=== PATIENT | female | born 1955 | race Caucasian/White ===

== ENCOUNTER 2018-02-08 19:10 | Inpatient (IN) | payer MEDICARE, OTHER ==
[~2018-02-08] VITALS: Ht 167.6 cm; Wt 89.8 kg
[2018-02-08 21:05] VITALS: BP 150/86
[2018-02-08] MEDS ORDERED: PLEASE ENTER HEIGHT AND WEIGHT MC SCH (22:00)
[2018-02-08] MEDS ORDERED: BISACODYL 10 MG SUPP PR PRN (22:00)
[2018-02-08] MEDS ORDERED: ONDANSETRON 2MG/ML, 2ML IVPush PRN (22:00)
[2018-02-08] MEDS ORDERED: POLYETHYLENE GLYCOL 17 GM PACKET PO PRN (22:00)
[2018-02-08] MEDS ORDERED: PLEASE ENTER ALLERGIES MC SCH (22:00)
[2018-02-08] MEDS ORDERED: DOCU100C33 PO (22:19)
[2018-02-08] MEDS ORDERED: EZET10TA18 PO (22:19)
[2018-02-08] MEDS ORDERED: HYDR-3245 PO (22:19)
[2018-02-08] MEDS ORDERED: ATEN-104 PO (22:19)
[2018-02-08] MEDS ORDERED: LEVO150T PO (22:19)
[2018-02-08] MEDS ORDERED: LEVO5TAB2 PO (22:19)
[2018-02-08] MEDS ORDERED: RABE20TA18 PO (22:19)
[2018-02-08] MEDS ORDERED: TIZA4TAB9 PO (22:19)
[2018-02-08] MEDS ORDERED: ATEN25TA PO (22:19)
[2018-02-08] MEDS ORDERED: ASPI-191 PO (22:19)
[2018-02-08] MEDS ORDERED: PITA4TAB2 PO (22:19)
[2018-02-08] MEDS ORDERED: LIRA0.6P SC (22:19)
[2018-02-08] MEDS ORDERED: ALLO300T PO (22:19)
[2018-02-08] MEDS ORDERED: LEVO25TA2 PO (22:28)
[2018-02-08 23:02] LABS: HEMOGLOBIN A1C 6.3 % (4.2-6.3)
[2018-02-08] MEDS: PITAVASTATIN CALCIUM PO SCH (23:30)
[2018-02-08] MEDS ORDERED: HYDROcodone/APAP 10/325 MG TABLET PO PRN (23:30)
[2018-02-09] MEDS: TIZANIDINE 4MG TABLET PO SCH ×2 (00:31→20:38)
[2018-02-09] MEDS: DIPHENHYDRAMINE 25 MG CAPSULE PO PRN ×2 (00:31→20:42)
[2018-02-09] MEDS: SODIUM CHLORIDE FLUSH 10ML SYR IVF SCH ×3 (00:33→21:00)
[2018-02-09] MEDS: ATENOLOL 25 MG TABLET PO SCH ×2 (00:34→20:37)
[2018-02-09] MEDS: ACETAMINOPHEN 325 MG TABLET PO PRN ×2 (00:43→12:54)
[2018-02-09 02:44] VITALS: BP 96/63
[2018-02-09] MEDS: LEVOTHYROXINE 25 MCG TABLET PO SCH (06:00)
[2018-02-09 06:09] LABS: BASOPHILS # (AUTO) 0.02 x10^3/uL (0-0.1); BASOPHILS % (AUTO) 0 % (0-1); EOSINOPHILS % (AUTO) 0 % (1-7); LYMPHOCYTES # (AUTO) 1.61 x10^3/uL (1-3.4); LYMPHOCYTES % (AUTO) 23 % (22-44); MD NO; MEAN CORPUSCULAR HGB CONC 33.3 g/dL (32.4-35.8); MEAN PLATELET VOLUME 7.8 fL (7.4-10.4); MONOCYTES # (AUTO) 0.63 x10^3/uL (0.2-0.8); MONOCYTES % (AUTO) 9 % (2-9); NEUTROPHILS # (AUTO) 4.63 x10^3/uL (1.8-6.8); NEUTROPHILS % (AUTO) 67 % (42-75); PLATELET COUNT 271 x10^3/uL (130-400); RED BLOOD COUNT 3.63 x10^6/uL (3.82-5.3); RED CELL DISTRIBUTION WIDTH 14.9 % (9.6-15.2)
[2018-02-09 06:25] LABS: CHLORIDE 113 mmol/L (98-107)
[2018-02-09 06:39] LABS: ALANINE AMINOTRANSFERASE 18 U/L (12-78); ALKALINE PHOSPHATASE 71 U/L (45-117); ANION GAP 7 mmol/L (5-15); BILIRUBIN,TOTAL 0.4 mg/dL (0.2-1.0); CALCIUM 8.3 mg/dL (8.5-10.1); CREATININE 1.13 mg/dL (0.55-1.02); TOTAL PROTEIN 5.9 g/dL (6.4-8.2)
[2018-02-09 07:59] VITALS: BP 110/69
[2018-02-09] MEDS: EZETIMIBE 10 MG TABLET PO SCH (08:07)
[2018-02-09] MEDS: SENNA/DOCUSATE TABLET PO SCH (08:07)
[2018-02-09] MEDS: ALLOPURINOL 300 MG TABLET PO SCH (08:08)
[2018-02-09] MEDS: ASPIRIN 81 MG TABLET EC PO SCH (08:08)
[2018-02-09] MEDS: ATENOLOL 50 MG TABLET PO SCH (08:08)
[2018-02-09] MEDS: LEVOCETIRIZINE DIHYDROCHLORIDE 2.5 MG PO SCH (08:10)
[2018-02-09] MEDS ORDERED: PANTOPROZOLE 40MG TABLET PO SCH (09:00)
[2018-02-09 12:19] VITALS: BP 139/86
[2018-02-09] MEDS ORDERED: OMNIPAQUE 350 MG/ML, 100ML BOTTLE ONE (14:53)
[2018-02-09 20:18] VITALS: BP 164/94
[2018-02-09] MEDS ORDERED: ATENOLOL 50 MG TABLET ONE (20:26)
[2018-02-09] MEDS: PITAVASTATIN CALCIUM PO SCH (20:38)
[2018-02-09] MEDS: ACIPHEX 20 MG HOMEMEDPO SCH (20:43)
[2018-02-09] MEDS ORDERED: ACIPHEX 20 MG PO SCH (21:00)
[2018-02-10 02:06] VITALS: BP 105/67
[2018-02-10 06:03] LABS: BASOPHILS # (AUTO) 0.02 x10^3/uL (0-0.1); BASOPHILS % (AUTO) 0 % (0-1); EOSINOPHILS # (AUTO) 0.03 x10^3/uL (0-0.4); EOSINOPHILS % (AUTO) 1 % (1-7); LYMPHOCYTES # (AUTO) 1.53 x10^3/uL (1-3.4); LYMPHOCYTES % (AUTO) 25 % (22-44); MD NO; MEAN CORPUSCULAR HEMOGLOBIN 30.1 pg (27.0-34.8); MEAN CORPUSCULAR HGB CONC 33.3 g/dL (32.4-35.8); MEAN CORPUSCULAR VOLUME 90.2 fL (80-100); MEAN PLATELET VOLUME 7.6 fL (7.4-10.4); MONOCYTES # (AUTO) 0.59 x10^3/uL (0.2-0.8); MONOCYTES % (AUTO) 10 % (2-9); NEUTROPHILS # (AUTO) 3.96 x10^3/uL (1.8-6.8); NEUTROPHILS % (AUTO) 65 % (42-75); PLATELET COUNT 286 x10^3/uL (130-400); RED BLOOD COUNT 3.98 x10^6/uL (3.82-5.3); RED CELL DISTRIBUTION WIDTH 15.4 % (9.6-15.2)
[2018-02-10 06:15] LABS: ANION GAP 8 mmol/L (5-15); CALCIUM 8.4 mg/dL (8.5-10.1); CHLORIDE 108 mmol/L (98-107); CHOLESTEROL, TOTAL 171 mg/dL (140-239); CREATININE 1.28 mg/dL (0.55-1.02); TRIGLYCERIDES 172 mg/dL (50-200); VLDL CHOLESTEROL 34 mg/dL (0-25)
[2018-02-10 06:17] LABS: CHOL/HDL RATIO 3.2; HDL CHOL % 31 % (28-40); HDL CHOLESTEROL (DIRECT) 53 mg/dL (40-60); LDL CHOLESTEROL,CALCULATED 84 mg/dL (54-169)
[2018-02-10 06:18] LABS: LDL/HDL RATIO 1.6 (0.5-3.0)
[2018-02-10] MEDS: LEVOTHYROXINE 25 MCG TABLET PO SCH (06:24)
[2018-02-10 08:05] VITALS: BP 111/72
[2018-02-10] MEDS: SENNA/DOCUSATE TABLET PO SCH (09:00)
[2018-02-10] MEDS: LEVOCETIRIZINE DIHYDROCHLORIDE 2.5 MG PO SCH (09:00)
[2018-02-10] MEDS: SODIUM CHLORIDE FLUSH 10ML SYR IVF SCH ×2 (09:00→21:10)
[2018-02-10] MEDS: ATENOLOL 50 MG TABLET PO SCH (09:07)
[2018-02-10] MEDS: ASPIRIN 81 MG TABLET EC PO SCH (09:08)
[2018-02-10] MEDS: EZETIMIBE 10 MG TABLET PO SCH (09:08)
[2018-02-10] MEDS: ALLOPURINOL 300 MG TABLET PO SCH (09:09)
[2018-02-10 13:14] VITALS: BP 129/82
[2018-02-10] MEDS: ACETAMINOPHEN 325 MG TABLET PO PRN (18:24)
[2018-02-10] MEDS: PITAVASTATIN CALCIUM PO SCH (21:00)
[2018-02-10] MEDS: ACIPHEX 20 MG HOMEMEDPO SCH (21:00)
[2018-02-10] MEDS: TIZANIDINE 4MG TABLET PO SCH (21:10)
[2018-02-10] MEDS: ATENOLOL 25 MG TABLET PO SCH (21:10)
[2018-02-10] MEDS: DIPHENHYDRAMINE 25 MG CAPSULE PO PRN (21:13)
[2018-02-10 21:30] VITALS: BP 90/57
[2018-02-11 02:10] VITALS: BP 100/67
[2018-02-11] MEDS ORDERED: SODIUM CHLORIDE 0.9% 1,000 ML IV SCH (06:00)
[2018-02-11] MEDS: LEVOTHYROXINE 25 MCG TABLET PO SCH (06:00)
[2018-02-11 06:01] LABS: CHLORIDE 110 mmol/L (98-107)
[2018-02-11 06:06] LABS: ANION GAP 10 mmol/L (5-15)
[2018-02-11 07:54] VITALS: BP 94/63
[2018-02-11] MEDS: ATENOLOL 50 MG TABLET PO SCH (08:05)
[2018-02-11] MEDS: LEVOCETIRIZINE DIHYDROCHLORIDE 2.5 MG PO SCH (08:08)
[2018-02-11] MEDS: SODIUM CHLORIDE FLUSH 10ML SYR IVF SCH ×2 (08:08→19:50)
[2018-02-11] MEDS: SENNA/DOCUSATE TABLET PO SCH (09:00)
[2018-02-11] MEDS: EZETIMIBE 10 MG TABLET PO SCH (09:00)
[2018-02-11] MEDS: ALLOPURINOL 300 MG TABLET PO SCH (09:00)
[2018-02-11] MEDS: ASPIRIN 81 MG TABLET EC PO SCH (09:00)
[2018-02-11] MEDS ORDERED: FENTANYL PF 100 MCG/2ML ONE ×2 (13:48→14:51)
[2018-02-11] MEDS ORDERED: HEPARIN 1,000 UNITS/ML, 10ML ONE (13:49)
[2018-02-11] MEDS ORDERED: MIDAZOLAM 1 MG/ML, 5ML ONE (13:49)
[2018-02-11] MEDS ORDERED: BIVALIRUDIN 250 MG ONE (13:49)
[2018-02-11] MEDS ORDERED: VERAPAMIL 2.5 MG/ML, 2ML ONE (13:49)
[2018-02-11] MEDS ORDERED: TICAGRELOR 90 MG TABLET ONE (13:49)
[2018-02-11] MEDS ORDERED: LIDOCAINE 1%, 50ML ONE (14:12)
[2018-02-11] MEDS ORDERED: MIDAZOLAM 1 MG/ML, 2ML ONE (14:51)
[2018-02-11] MEDS ORDERED: BIVALIRUDIN 250 MG in DEXTROSE 5% 50 ML IV SCH (15:15)
[2018-02-11 15:20] VITALS: BP 130/84
[2018-02-11] MEDS: SODIUM CHLORIDE 0.9% 1,000 ML IV SCH ×2 (16:00→23:16)
[2018-02-11 18:45] VITALS: BP 145/90
[2018-02-11] MEDS: TIZANIDINE 4MG TABLET PO SCH (19:48)
[2018-02-11] MEDS: TICAGRELOR 90 MG TABLET PO SCH (19:48)
[2018-02-11] MEDS: PITAVASTATIN CALCIUM PO SCH (19:49)
[2018-02-11] MEDS: ACIPHEX 20 MG HOMEMEDPO SCH (19:49)
[2018-02-11 19:53] VITALS: BP 97/65
[2018-02-11] MEDS ORDERED: ATENOLOL 25 MG TABLET PO SCH (21:00)
[2018-02-11 22:43] VITALS: BP 89/60
[2018-02-12 00:25] VITALS: BP 92/63
[2018-02-12 02:13] VITALS: BP 113/76
[2018-02-12] MEDS: LEVOTHYROXINE 25 MCG TABLET PO SCH (05:31)
[2018-02-12 05:47] LABS: ALBUMIN 3.1 g/dL (3.4-5.0); ANION GAP 9 mmol/L (5-15); CALCIUM 8.5 mg/dL (8.5-10.1); CHLORIDE 111 mmol/L (98-107); CREATININE 0.99 mg/dL (0.55-1.02)
[2018-02-12 06:30] LABS: BASOPHILS # (AUTO) 0.02 x10^3/uL (0-0.1); BASOPHILS % (AUTO) 0 % (0-1); EOSINOPHILS # (AUTO) 0.07 x10^3/uL (0-0.4); EOSINOPHILS % (AUTO) 1 % (1-7); LYMPHOCYTES # (AUTO) 1.74 x10^3/uL (1-3.4); LYMPHOCYTES % (AUTO) 24 % (22-44); MD SCAN; MEAN CORPUSCULAR HEMOGLOBIN 29.6 pg (27.0-34.8); MEAN CORPUSCULAR HGB CONC 32.9 g/dL (32.4-35.8); MEAN CORPUSCULAR VOLUME 89.8 fL (80-100); MEAN PLATELET VOLUME 7.6 fL (7.4-10.4); MONOCYTES # (AUTO) 0.63 x10^3/uL (0.2-0.8); MONOCYTES % (AUTO) 9 % (2-9); NEUTROPHILS # (AUTO) 4.89 x10^3/uL (1.8-6.8); NEUTROPHILS % (AUTO) 67 % (42-75); PLATELET COUNT 291 x10^3/uL (130-400); RED BLOOD COUNT 4.15 x10^6/uL (3.82-5.3); RED CELL DISTRIBUTION WIDTH 15.2 % (9.6-15.2)
[2018-02-12 06:49] VITALS: BP 135/83
[2018-02-12] MEDS ORDERED: ATENOLOL 50 MG TABLET PO SCH (07:30)
[2018-02-12] MEDS: SODIUM CHLORIDE 0.9% 1,000 ML IV SCH ×2 (08:00→16:00)
[2018-02-12] MEDS: LEVOCETIRIZINE DIHYDROCHLORIDE 2.5 MG PO SCH (09:00)
[2018-02-12] MEDS: EZETIMIBE 10 MG TABLET PO SCH (09:00)
[2018-02-12] MEDS: METOPROLOL SUCCINATE 25 MG TAB.ER.24H PO SCH (09:00)
[2018-02-12] MEDS: ASPIRIN 81 MG TABLET EC PO SCH (09:00)
[2018-02-12] MEDS: SENNA/DOCUSATE TABLET PO SCH (09:00)
[2018-02-12] MEDS: ALLOPURINOL 300 MG TABLET PO SCH (09:00)
[2018-02-12] MEDS: SODIUM CHLORIDE FLUSH 10ML SYR IVF SCH ×2 (09:00→20:13)
[2018-02-12] MEDS: TICAGRELOR 90 MG TABLET PO SCH ×2 (09:00→20:10)
[2018-02-12 13:44] VITALS: BP 122/77
[2018-02-12 19:07] VITALS: BP 104/72
[2018-02-12] MEDS: TIZANIDINE 4MG TABLET PO SCH (20:09)
[2018-02-12] MEDS: PITAVASTATIN CALCIUM PO SCH (20:10)
[2018-02-12] MEDS: ACIPHEX 20 MG HOMEMEDPO SCH (20:11)
[2018-02-12] MEDS: DIPHENHYDRAMINE 25 MG CAPSULE PO PRN (20:30)
[2018-02-13 00:34] VITALS: BP 95/65
[2018-02-13 05:30] LABS: ALBUMIN 3.3 g/dL (3.4-5.0); ANION GAP 6 mmol/L (5-15); CALCIUM 8.9 mg/dL (8.5-10.1); CHLORIDE 110 mmol/L (98-107)
[2018-02-13 05:33] LABS: ALANINE AMINOTRANSFERASE 16 U/L (12-78); ALKALINE PHOSPHATASE 74 U/L (45-117); BILIRUBIN,TOTAL 0.4 mg/dL (0.2-1.0); CREATININE 1.13 mg/dL (0.55-1.02); TOTAL PROTEIN 7.1 g/dL (6.4-8.2)
[2018-02-13 05:36] VITALS: BP 126/85
[2018-02-13] MEDS: METOPROLOL SUCCINATE 25 MG TAB.ER.24H PO SCH (05:37)
[2018-02-13] MEDS: LEVOTHYROXINE 25 MCG TABLET PO SCH (05:37)
[2018-02-13 07:38] VITALS: BP 121/67
[2018-02-13] MEDS: SENNA/DOCUSATE TABLET PO SCH (09:00)
[2018-02-13] MEDS: LEVOCETIRIZINE DIHYDROCHLORIDE 2.5 MG PO SCH (09:00)
[2018-02-13] MEDS: ACETAMINOPHEN 325 MG TABLET PO PRN ×3 (10:01→19:59)
[2018-02-13] MEDS: SODIUM CHLORIDE FLUSH 10ML SYR IVF SCH ×2 (10:01→19:42)
[2018-02-13] MEDS: ASPIRIN 81 MG TABLET EC PO SCH (10:01)
[2018-02-13] MEDS: EZETIMIBE 10 MG TABLET PO SCH (10:01)
[2018-02-13] MEDS: TICAGRELOR 90 MG TABLET PO SCH ×2 (10:01→19:44)
[2018-02-13] MEDS: ALLOPURINOL 300 MG TABLET PO SCH (10:02)
[2018-02-13 12:30] VITALS: BP 142/94
[2018-02-13 18:43] VITALS: BP 135/85
[2018-02-13] MEDS: TIZANIDINE 4MG TABLET PO SCH (19:44)
[2018-02-13] MEDS: DIPHENHYDRAMINE 25 MG CAPSULE PO PRN (19:44)
[2018-02-13] MEDS: ACIPHEX 20 MG HOMEMEDPO SCH (19:45)
[2018-02-13] MEDS: PITAVASTATIN CALCIUM PO SCH (19:45)
[2018-02-14 02:09] VITALS: BP 97/64
[2018-02-14 05:19] VITALS: BP 96/65
[2018-02-14] MEDS: LEVOTHYROXINE 25 MCG TABLET PO SCH (05:21)
[2018-02-14 05:22] LABS: ALBUMIN 3.3 g/dL (3.4-5.0); ANION GAP 6 mmol/L (5-15); CALCIUM 8.7 mg/dL (8.5-10.1); CHLORIDE 110 mmol/L (98-107)
[2018-02-14 05:24] LABS: ALANINE AMINOTRANSFERASE 17 U/L (12-78); ALKALINE PHOSPHATASE 71 U/L (45-117); BILIRUBIN,TOTAL 0.5 mg/dL (0.2-1.0); CREATININE 1.12 mg/dL (0.55-1.02)
[2018-02-14 06:02] VITALS: BP 115/74
[2018-02-14] MEDS: METOPROLOL SUCCINATE 25 MG TAB.ER.24H PO SCH (06:03)
[2018-02-14 07:19] VITALS: BP 101/70
[2018-02-14] MEDS: ALLOPURINOL 300 MG TABLET PO SCH (08:55)
[2018-02-14] MEDS: EZETIMIBE 10 MG TABLET PO SCH (08:55)
[2018-02-14] MEDS: TICAGRELOR 90 MG TABLET PO SCH (08:55)
[2018-02-14] MEDS: SODIUM CHLORIDE FLUSH 10ML SYR IVF SCH (08:56)
[2018-02-14] MEDS: ASPIRIN 81 MG TABLET EC PO SCH (08:56)
[2018-02-14] MEDS: LEVOCETIRIZINE DIHYDROCHLORIDE 2.5 MG PO SCH (09:00)
[2018-02-14] MEDS: SENNA/DOCUSATE TABLET PO SCH (09:19)
[2018-02-14] MEDS ORDERED: TICA90TA PO (09:23)
[2018-02-14] MEDS ORDERED: METO25TA91 PO (09:23)
[2018-02-14 09:34] VITALS: BP 120/82
== END 2018-02-14 13:03 | disposition home or self-care (01) | DRG 246 ==
LOC: 4EST 20:43 → 4NOR 21:26 → 4EST 02-09 18:37 → 5SO 02-11 15:27
PROVIDERS: ADMIT Hospitalist; ATTEND Hospitalist
PROC: 0JH632Z Insertion of Monitoring Device into Chest Subcutaneous Tissue and Fascia, Percutaneous Approach (ICD-10-PCS; principal; 2018-02-11)
PROC: 027034Z Dilation of Coronary Artery, One Artery with Drug-eluting Intraluminal Device, Percutaneous Approach (ICD-10-PCS; 2018-02-11)
PROC: 4A023N7 Measurement of Cardiac Sampling and Pressure, Left Heart, Percutaneous Approach (ICD-10-PCS; 2018-02-11)
PROC: B2111ZZ Fluoroscopy of Multiple Coronary Arteries using Low Osmolar Contrast (ICD-10-PCS; 2018-02-11)
PROC: B2151ZZ Fluoroscopy of Left Heart using Low Osmolar Contrast (ICD-10-PCS; 2018-02-11)
PROC: 03HY32Z Insertion of Monitoring Device into Upper Artery, Percutaneous Approach (ICD-10-PCS; 2018-02-11)
DX: I25.110 Atherosclerotic heart disease of native coronary artery with unstable angina pectoris (principal); I63.9 Cerebral infarction, unspecified; N17.9 Acute kidney failure, unspecified; R47.01 Aphasia; E78.01 Familial hypercholesterolemia; E03.9 Hypothyroidism, unspecified; M10.9 Gout, unspecified; E78.5 Hyperlipidemia, unspecified; I12.9 Hypertensive chronic kidney disease with stage 1 through stage 4 chronic kidney disease, or unspecified chronic kidney disease; N18.9 Chronic kidney disease, unspecified; E11.22 Type 2 diabetes mellitus with diabetic chronic kidney disease; D64.9 Anemia, unspecified; K44.9 Diaphragmatic hernia without obstruction or gangrene; I25.2 Old myocardial infarction; Z95.5 Presence of coronary angioplasty implant and graft; Z88.0 Allergy status to penicillin; Z88.1 Allergy status to other antibiotic agents; Z88.2 Allergy status to sulfonamides; Z72.89 Other problems related to lifestyle; Z87.891 Personal history of nicotine dependence; Z82.49 Family history of ischemic heart disease and other diseases of the circulatory system; Z83.3 Family history of diabetes mellitus; Z90.710 Acquired absence of both cervix and uterus; Z98.1 Arthrodesis status; Z90.89 Acquired absence of other organs; Z90.49 Acquired absence of other specified parts of digestive tract; Z79.82 Long term (current) use of aspirin; Z79.899 Other long term (current) drug therapy; Z82.3 Family history of stroke
CPT/HCPCS: 33282; 36415; 70498; 80048; 80053; 80061; 82040; 82962; 83036; 84443; 85025; 93005; 93306; 93458; 93880; 99156; 99157; C1764; C1769; C1894; C9600; G0378; J0583; J1644; J2250; J3010; J3490; Q9967; 92523-GN; C1725; C1874; C1887; J7030; Q0163

== ENCOUNTER 2018-07-06 12:02 | Outpatient (CLI) | payer MEDICARE, OTHER ==
[~2018-07-06 12:02] MED LIST: ALLO300T PO; ASPI-191 PO; ATEN-104 PO; ATEN25TA PO; DOCU100C33 PO; EZET10TA18 PO; HYDR-3245 PO; LEVO150T PO; LEVO25TA2 PO; LEVO5TAB2 PO; LIRA0.6P SC; METO25TA91 PO; PITA4TAB2 PO; RABE20TA18 PO; TICA90TA PO; TIZA4TAB9 PO
== END 2018-07-06 23:59 | disposition home or self-care (01) ==
LOC: CFH 12:02
PROVIDERS: ATTEND Family Medicine
DX: Z13.820 Encounter for screening for osteoporosis (principal); Z12.31 Encounter for screening mammogram for malignant neoplasm of breast; M85.88 Other specified disorders of bone density and structure, other site
CPT/HCPCS: 77080; 77067

== ENCOUNTER 2019-05-17 13:41 | Outpatient (CLI) | payer MEDICARE, OTHER ==
[~2019-05-17 13:41] MED LIST changes: -EZET10TA18 PO; +EZET10TA70 PO
[2019-05-17] MEDS ORDERED: vitamin D PO (15:15)
[2019-05-17] MEDS ORDERED: METOPROLOL SUCC PO (15:15)
[2019-05-17] MEDS ORDERED: EVOL140P INJ (15:20)
[2019-05-17] MEDS ORDERED: EMPA25TA PO (15:20)
[2019-05-17] MEDS ORDERED: DIPH25CA61 PO (15:20)
[2019-05-17] MEDS ORDERED: HYDR-36 PO (15:20)
[2019-05-17 15:24] LABS: BASOPHILS # (AUTO) 0.03 x10^3/uL (0-0.1); BASOPHILS % (AUTO) 0 % (0-1); EOSINOPHILS # (AUTO) 0.09 x10^3/uL (0-0.4); EOSINOPHILS % (AUTO) 1 % (1-7); LYMPHOCYTES # (AUTO) 2.12 x10^3/uL (1-3.4); LYMPHOCYTES % (AUTO) 24 % (22-44); MD NO; MEAN CORPUSCULAR HEMOGLOBIN 28.6 pg (27.0-34.8); MEAN CORPUSCULAR HGB CONC 32.4 g/dL (32.4-35.8); MEAN CORPUSCULAR VOLUME 88.4 fL (80-100); MEAN PLATELET VOLUME 8.2 fL (7.4-10.4); MONOCYTES # (AUTO) 0.56 x10^3/uL (0.2-0.8); MONOCYTES % (AUTO) 6 % (2-9); NEUTROPHILS # (AUTO) 6.08 x10^3/uL (1.8-6.8); NEUTROPHILS % (AUTO) 69 % (42-75); PLATELET COUNT 472 x10^3/uL (130-400); RED BLOOD COUNT 5.01 x10^6/uL (3.82-5.3); RED CELL DISTRIBUTION WIDTH 15.4 % (9.6-15.2)
[2019-05-17 15:27] LABS: ANION GAP 7 mmol/L (5-15); CALCIUM 9.7 mg/dL (8.5-10.1); CHLORIDE 105 mmol/L (98-107); CREATININE 1.07 mg/dL (0.55-1.02)
[2019-05-17 16:08] LABS: HEMOGLOBIN A1C 7.6 % (4.2-6.3)
[2019-05-17 16:12] LABS: INTERNATIONAL NORMALIZED RATIO 0.91 (0.93-1.1); PROTHROMBIN TIME 9.6 Seconds (9.6-11.5)
== END 2019-05-17 23:59 | disposition home or self-care (01) ==
LOC: STAR 13:41
PROVIDERS: ATTEND Orthopaedic Surgery
DX: Z01.818 Encounter for other preprocedural examination (principal); M16.12 Unilateral primary osteoarthritis, left hip
CPT/HCPCS: 36415; 80048; 83036; 85025; 85610; 85730; 87081; 93005